=== PATIENT | male | born 1990 | race African-American/Black ===

== ENCOUNTER 2019-03-25 13:03 | Emergency (ER) | payer OTHER ==
[~2019-03-25] VITALS: Ht 175.3 cm; Wt 68.0 kg
[2019-03-25 13:21] VITALS: BP 141/88
== END 2019-03-25 17:30 | disposition left against medical advice (07) ==
LOC: ER 13:03
DX: K59.00 Constipation, unspecified (principal); Z53.21 Procedure and treatment not carried out due to patient leaving prior to being seen by health care provider